=== PATIENT | male | born 1995 | race Caucasian/White ===

== ENCOUNTER 2016-07-02 07:39 | Emergency (ER) | payer OTHER ==
[~2016-07-02] VITALS: Ht 170.2 cm; Wt 54.4 kg
[~2016-07-02 07:39] MED LIST: BENADRYL25 MG PO; PREDNISONE10 M2 PO
--- NOTE | 2016-07-02 08:17 | ED GI/GU/ABDOMINAL COMPLAINT ---
History of Present Illness General Chief Complaint: Nausea, Vomiting, Diarrhea Stated Complaint: NVD Source: patient Exam Limitations: no limitations Vital Signs & Intake/Output Vital Signs & Intake/Output Vital Signs Date Time Temp Pulse Resp B/P Pulse O2 O2 Flow FiO2 Ox Delivery Rate 07/02 0949 97.3 101 18 104/60 97 Room Air 07/02 0743 97.2 102 18 136/71 98 Room Air Allergies Coded Allergies: No Known Allergies (02/11/16) Reconcile Medications No Known Home Medications Triage Note: 20 Y/O MALE C/O N/V/D SINCE 399. "I FEEL DEHYDRATED". AFEBRILE. Triage Nurses Notes Reviewed? yes HPI: Patient presents for evaluation of sudden onset of severe intermittent nausea and vomiting with a diffuse cramping abdominal pain that began at 4 AM. Patient states he has had 4 or 5 episodes of nonbloody diarrhea. He states this may be related to something he ate last night which consisted of chicken wings and pizza. In addition he had 1 beer and smoked marijuana last night. He denies any associated fever, cold symptoms, chest pain, dyspnea, dysuria, rashes, known ill contacts or recent travel. He did have a case of the flu a few weeks ago. Patient is primarily concerned about dehydration. Past History Travel History Traveled to [place] past 21 day No Medical History Any Pertinent Medical History? see below for history Neurological: NONE EENT: NONE Cardiovascular: NONE Respiratory: NONE Gastrointestinal: NONE Hepatic: NONE Renal: NONE Musculoskeletal: NONE Psychiatric: NONE Endocrine: NONE Blood Disorders: NONE Cancer(s): NONE [employer]/Reproductive: NONE Surgical History Surgical History: non-contributory Psychosocial History What is your primary language Mongolian Tobacco Use: Current Daily Use Daily Tobacco Use Amount/Type: => 5 Cigarettes daily Family History Hx Contributory? No Review of Systems Review of Systems Constitutional: Reports: no symptoms. EENTM: Reports: no symptoms. Respiratory: Reports: no symptoms. Cardiovascular: Reports: no symptoms. GI: Reports: see HPI. Genitourinary: Reports: no symptoms. Musculoskeletal: Reports: no symptoms. Skin: Reports: no symptoms. Neurological/Psychological: Reports: no symptoms. Hematologic/Endocrine: Reports: no symptoms. Immunologic/Allergic: Reports: no symptoms. All Other Systems: Reviewed and Negative Physical Exam Physical Exam Gastrointestinal: SEE BELOW Comments: Gen.: Well-nourished, well-developed, no acute respiratory distress. Head: Normocephalic, atraumatic. Eyes: Normal inspection bilaterally Ears: Normal inspection bilaterally Nose: Normal inspection Throat/mouth : Tacky mucosa Neck: Supple, full range of motion, no goiter Heart: Regular rate and rhythm, no murmurs rubs or gallops Lungs: Clear to auscultation bilaterally with normal air entry Chest: Nontender Back: Normal range of motion Abdomen: Soft, periumbilical tenderness without rebound or guarding, nondistended, normal bowel sounds Extremities: Normal range of motion grossly, equal radial pulses, no cyanosis clubbing or edema Neurologic: Cranial nerves grossly intact, speech is clear Skin: warm and dry Psychiatric: Calm, cooperative, no apparent delusions or hallucinations Core Measures ACS in differential dx? No Severe Sepsis Present: No Septic Shock Present: No Progress Differential Diagnosis: GASTROENTERITIS, VIRAL SYNDROME, BACTERIAL COLITIS Plan of Care: Current Medications Sig/Tawnya Start time Last Medication Dose Stop Time Status Admin Hyoscyamine 0.125 MG ONCE ONE 07/02 1000 AC (Levsin) 07/02 1001 Initial ED EKG: none Comments: 07/02/2016 9:57:11 AM patient found asleep upon my arrival to the room. Patient awoke easily and states that he is feeling better although he still has little abdominal pain. I will order a dose of Levsin along with some clear liquids. If the patient is able to tolerate the medication liquid I feel he would be amenable to outpatient treatment of viral gastroenteritis. 07/02/2016 10:47:14 AM Pablo has tolerated well Levsin and water in the emergency department. Departure Departure Disposition: HOME OR SELF CARE Condition: Stable Clinical Impression Primary Impression: Viral gastroenteritis Referrals: [facility] PATIENT HAS NO PRIMARY CARE DR (PCP/Family) Additional Instructions: Zofran as needed for nausea or vomiting, Levsin as needed for abdominal pain. Clear liquid diet and advance as tolerated. Follow-up with a primary care physician on Wednesday if not improving. Return if any concerns or sudden worsening. Thank you for choosing the [facility] Emergency Department for your care. It was a pleasure to serve you today. Andrae Bolivar M.D. [facility] Departure Forms: Customer Survey General Discharge Information Prescriptions: Current Visit Scripts Hyoscyamine (Levsin) 1-2 TAB PO Q6P PRN ABDOMINAL CRAMPS #20 TAB Ondansetron (Zofran Odt) 1 TAB SL Q6P PRN NAUSEA/VOMITING #10 TAB
[2016-07-02 09:49] VITALS: BP 104/60
[2016-07-02] MEDS ORDERED: ZOFRAN ODT4 M1 SL (10:47)
[2016-07-02] MEDS ORDERED: LEVSIN0.125 M1 PO (10:47)
== END 2016-07-02 10:58 ==
LOC: ERH 07:39
DX: A08.4 Viral intestinal infection, unspecified (principal)
CPT/HCPCS: 96361; 96374; J2405